=== PATIENT | female | born 1955 | race Caucasian/White ===

== ENCOUNTER 2020-09-12 10:58 | Emergency (ER) | payer OTHER ==
[2020-09-12 11:02] VITALS: BP 115/73; PULSE 83; TEMP 99.2; BMI 29.6
[2020-09-12] MEDS ORDERED: SODIUM CHLORIDE 1,000 ML IV STA (11:32)
[2020-09-12] MEDS ORDERED: KETOROLAC TROMETHAMINE 30 MG/1 ML VIAL IVPUSH ONE (11:33)
[2020-09-12 11:34] LABS: BASO % 0.3 % (0-2.0); HEMOGLOBIN 13.8 GM/dl (10.7-15.3); LYMPH % 22.5 % (8-40); MCH 31.7 pg (25.7-33.7); MEAN CELL VOLUME 96.2 fl (80-96); MEAN PLT VOLUME 9.6 fl (7.5-11.1); MONO % 6.4 % (3.8-10.2); NEUT % 70.8 % (42.8-82.8); PLATELET COUNT 192 K/MM3 (134-434); RBC 4.36 M/mm3 (3.60-5.2); RDW 12.4 % (11.6-15.6); WHITE BLOOD COUNT 3.6 K/mm3 (4.0-10.8)
[2020-09-12 11:39] LABS: ALBUMIN 3.9 g/dl (3.4-5.0); BILIRUBIN,TOTAL 0.5 mg/dl (0.2-1); CALCIUM 8.8 mg/dl (8.5-10); CREATININE 0.6 mg/dl (0.55-1.3)
[2020-09-12] MEDS ORDERED: KETOROLAC TROMETHAMINE 15 MG/ML VIAL ONE (11:51)
== END 2020-09-12 14:36 | disposition home or self-care (01) ==
LOC: FER 10:58
PROC: 3E0333Z Introduction of Anti-inflammatory into Peripheral Vein, Percutaneous Approach (ICD-10-PCS; principal; 2020-09-12)
PROC: 3E0337Z Introduction of Electrolytic and Water Balance Substance into Peripheral Vein, Percutaneous Approach (ICD-10-PCS; 2020-09-12)
DX: S09.90XA Unspecified injury of head, initial encounter (principal)
CPT/HCPCS: 36415; 70450-TC; 71045-TC-FY; 80053; 85025; 99285-25